=== PATIENT | female | born 2000 | race Caucasian/White ===

== ENCOUNTER 2019-02-11 14:15 | Emergency (ER) | payer MEDICAID ==
[2019-02-11 14:41] VITALS: BP 121/78; PULSE 113
[2019-02-11] MEDS ORDERED: Ketorolac 60 MG/2 ML SDV IM ONE (14:55)
--- NOTE | 2019-02-11 15:03 | EDM.PDOC ---
ED HPI GENERAL MEDICAL PROBLEM - General Chief Complaint: ENT Problem Stated Complaint: POSSIBLE DEHYDRATION, PAIN IN R EAR Time Seen by Provider: 02/11/19 14:40 Source of Information: Reports: Patient, Family History Limitations: Reports: No Limitations - History of Present Illness INITIAL COMMENTS - FREE TEXT/NARRATIVE: 19-year-old female with right-sided ear pain, worsening over the past 3 days. She also has generalized malaise, painful swallowing, decreased appetite and loose stools. No fevers or chills. She was seen at the clinic yesterday, a rapid strep was obtained and was negative. No significant cough or shortness of breath. No rashes. She has taken some Tylenol without any benefit. Onset: Gradual Duration: Day(s): (3 days) Location: Reports: Other (Most of the intense pain is in the right ear and right jaw) Worsens with: Reports: Other (. Painful to open her mouth or move her right ear helix) Associated Symptoms: Reports: Headaches. Denies: Chest Pain, Cough, Fever/ Chills, Shortness of Breath Right Ear Pain Score (Numeric/FACES): 9 - Related Data Allergies Allergy/AdvReac Type Severity Reaction Status Date / Time Latex, Natural Rubber Allergy Burning Verified 02/11/19 14:29 Sulfa (Sulfonamide Allergy Facial Verified 02/11/19 14:29 Antibiotics) Swelling Home Meds: Home Meds Loperamide HCl [Loperamide] 1 tab PO ASDIRECTED 02/11/19 [History] Ondansetron [Ondansetron ODT] 4 mg PO Q6H PRN 02/11/19 [History] Past Medical History HEENT History: Reports: Impaired Vision Cardiovascular History: Reports: Other (See Below) Other Cardiovascular History: needs mitral valve replacement Respiratory History: Reports: Asthma Genitourinary History: Reports: Neurogenic Bladder 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: 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 History: Reports: Fracture Other 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 History: fx elbow nose Neurological History: Reports: Cerebral Palsy, Concussion, Head Trauma Other Neuro History: tbi Psychiatric History: Reports: Anxiety, Autism Other Psychiatric History: global - Past Surgical History HEENT Surgical History: Reports: Tonsillectomy Social & Family History - Tobacco Use Smoking Status *Q: Current Some Day Smoker Years of Tobacco use: 2 Packs/Tins Daily: 0.2 Used Tobacco, but Quit: No Second Hand Smoke Exposure: Yes - Caffeine Use Caffeine Use: Reports: None - Alcohol Use Days Per Week of Alcohol Use: 0 - Recreational Drug Use Recreational Drug Use: No ED ROS ENT - Review of Systems Review Of Systems: See Below Constitutional: Reports: Malaise, Decreased Appetite HEENT: Reports: Ear Pain, Throat Pain Respiratory: Denies: Shortness of Breath, Cough GI/Abdominal: Reports: Nausea. Denies: Abdominal Pain Skin: Reports: No Symptoms Neurological: Reports: Headache ED EXAM, ENT - Physical Exam Exam: See Below Exam Limited By: No Limitations General Appearance: Alert, Mild Distress (Tearful, looks very uncomfortable) Eye Exam: Bilateral Eye: Normal Inspection (Good hydration, crying tears) Ears: Other (Left tympanic membrane is normal, the right has redness, fluid, and slight bulging. There also appears to be some inflammation of the external canal) Mouth/Throat: Normal Inspection (Tonsils are absent) Neck: No: Lymphadenopathy (R), Lymphadenopathy (L) Respiratory/Chest: No Respiratory Distress, Lungs Clear Cardiovascular: Regular Rate, Rhythm Neurological: Alert, Oriented Psychiatric: Tearful Skin: Warm, Dry Course - Vital Signs Last Recorded V/S: Last Vital Signs Temp 98 F 02/11/19 14:39 Pulse 113 H 02/11/19 14:39 Resp 16 02/11/19 14:39 BP 121/78 02/11/19 14:39 Pulse Ox 96 02/11/19 14:39 - Orders/Labs/Meds Meds: Medications Discontinued Medications Generic Name Dose Route Start Last Admin Trade Name Javier PRN Reason Stop Dose Admin Ketorolac Tromethamine 60 mg 02/11/19 14:55 02/11/19 15:02 Toradol IM 02/11/19 14:56 60 mg ONETIME ONE Administration - Re-Assessments/Exams Free Text/Narrative Re-Assessment/Exam: 02/11/19 15:02 Patient will be placed on Augmentin 875 mg twice daily for at least 7 days, she was given 60 mg of IM Toradol and can continue with Toradol every 6 hours for the next 3 days. Recheck in 48-72 hours if not improving despite treatment. Departure - Departure Time of Disposition: 15:17 Disposition: Home, Self-Care 01 Clinical Impression: Otitis media Qualifiers: Otitis media type: serous Chronicity: acute Laterality: right Recurrence: non- recurrent Qualified Code(s): H65.01 - Acute serous otitis media, right ear - Discharge Information Instructions: Otitis Media, Adult, [id number] Referrals: Roxanna Youngblood MD [Primary Care Provider] - Forms: ED Department Discharge Care Plan Goals: Take one dose of antibiotic with food twice daily for at least 7 days if improving, take all 10 days if needed. Use pain medication every 6 hours until gone. You can also add Tylenol as well. Increase activity and diet as tolerated , and consider rechecking in 2-3 days if not improving.
== END 2019-02-11 15:17 | disposition home or self-care (01) ==
LOC: JP.ED 14:15
DX: H65.01 Acute serous otitis media, right ear (principal); F17.210 Nicotine dependence, cigarettes, uncomplicated; Z91.040 Latex allergy status; Z88.2 Allergy status to sulfonamides
CPT/HCPCS: 96372; 99284; J1885

== ENCOUNTER 2020-04-20 20:49 | Emergency (ER) | payer MEDICAID ==
[2020-04-20 21:41] VITALS: BP 145/85; PULSE 93
--- NOTE | 2020-04-20 22:00 | EDM.PDOC ---
ED HPI GENERAL MEDICAL PROBLEM - General Chief Complaint: Lower Extremity Injury/Pain Stated Complaint: L KNEE INJURY Time Seen by Provider: 04/20/20 21:54 Source of Information: Reports: Patient History Limitations: Reports: No Limitations - History of Present Illness INITIAL COMMENTS - FREE TEXT/NARRATIVE: Maggie is a 20-year-old female presenting to the ED for evaluation of left knee pain and swelling. The patient has been experiencing increasing pain in the knee for the last 3 to 4 weeks but had an episode where she fell on the ice landing on her left knee causing a popping sensation and pain. She has significant swelling in the infrapatellar area that is pushing the patella lateral. She has significant tenderness along the medial knee with swelling and bruising. She has been ambulating but with increasing difficulty due to pain. She denies any numbness or tingling distal to the injury. She denies any weakness in the leg. She denies any other injuries related to the fall. left knee Pain Score (Numeric/FACES): 6 - Related Data Allergies Allergy/AdvReac Type Severity Reaction Status Date / Time Influenza Virus Vaccines Allergy Airway Verified 04/20/20 21:45 Tightness Latex, Natural Rubber Allergy Burning Verified 04/20/20 21:36 Sulfa (Sulfonamide Allergy Facial Verified 04/20/20 21:36 Antibiotics) Swelling Home Meds: Home Meds NK [No Known Home Meds] 04/20/20 [History] Past Medical History HEENT History: Reports: Impaired Vision Cardiovascular History: Reports: Other (See Below) Other Cardiovascular History: needs mitral valve replacement Respiratory History: Reports: Asthma Gastrointestinal History: Reports: GERD Genitourinary History: Reports: Neurogenic Bladder, UTI, Recurrent 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: 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 History: Reports: Fracture Other 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 History: fx elbow nose Neurological History: Reports: Cerebral Palsy, Concussion, Head Trauma Other Neuro History: tbi Psychiatric History: Reports: Anxiety, Autism Other Psychiatric History: global - Infectious Disease History Infectious Disease History: Reports: Chicken Pox, Mononucleosis, Novel Coronavirus - Past Surgical History HEENT Surgical History: Reports: Tonsillectomy Other HEENT Surgeries/Procedures: freq strep Neurological Surgical History: Reports: Scoliosis 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 Surgical History: Reports: ORIF Social & Family History - Tobacco Use Tobacco Use Status *Q: Current Every Day Tobacco User Years of Tobacco use: 5 Packs/Tins Daily: 0.2 - Caffeine Use Caffeine Use: Reports: None - Recreational Drug Use Recreational Drug Use: No Review of Systems - Review of Systems Review Of Systems: See Below Constitutional: Reports: No Symptoms Eyes: Reports: No Symptoms Respiratory: Reports: No Symptoms Cardiovascular: Reports: No Symptoms GI/Abdominal: Reports: No Symptoms Genitourinary: Reports: No Symptoms 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: Reports: Joint Pain (Left knee swelling and pain), Joint Swe lling (Left knee) Skin: Reports: No Symptoms Neurological: Reports: No Symptoms Psychiatric: Reports: No Symptoms ED EXAM, GENERAL - Physical Exam Exam: See Below Exam Limited By: No Limitations General Appearance: Alert, WD/WN, No Apparent Distress Cardiovascular: Normal Peripheral Pulses, Regular Rate, Rhythm, No Murmur Peripheral Pulses: 2+: Radial (L), Radial (R), Posterior Tibial (L), Posterior Tibial (R) Extremities: Joint Swelling (Significant infrapatellar effusion. Tenderness with palpation over the patella and medial joint line.), Limited Range of Motion (Flexion to 110 degrees with extension to 170 degrees.), Other (Significant laxity of the left medial collateral ligament with swelling and bruising along the medial joint line.) Neurological: Alert, Oriented, No Motor/Sensory Deficits Course - Vital Signs Last Recorded V/S: Last Vital Signs Temp 36.6 C 04/20/20 21:40 Pulse 93 04/20/20 21:40 Resp 18 04/20/20 21:40 BP 145/85 H 04/20/20 21:40 Pulse Ox 99 04/20/20 21:40 - Orders/Labs/Meds Orders: Active Orders 24 hr Category Date Time Status Knee 3V Lt [CR] Stat Exams 04/20/20 22:00 Taken - Radiology Interpretation Free Text/Narrative:: Left knee x-ray shows moderate effusion with lateral displacement (subluxation) of the patella. There is no evidence for an acute fracture. - Re-Assessments/Exams Free Text/Narrative Re-Assessment/Exam: 04/20/20 23:00 the patient has findings consistent with an acute sprain of the knee and likely has either a partial or complete tear of the medial collateral ligament. She has significant tenderness and swelling of the medial joint line. X-rays were obtained but did not show any evidence for tibial plateau fr acture. Her son arrives he is show a lateral subluxation of the patella with a large effusion displacing it laterally. Given the laxity of the medial ligaments, we will put the patient in a knee immobilizer and on crutches. I will refer her to Dr. Flynn for further evaluation and care. I did instruct the patient to nonweight-bear on the left leg, ice and elevate the knee to reduce swelling, and wear the brace to prevent any further injury. Work note has been provided to the patient with limitations of wearing the brace, no weightbearing on the left leg, and crutch walking until cleared by orthopedics. Indications return to the ED were discussed. Referral to Dr. Flynn was placed. All questions were answered prior to discharge. Departure - Departure Time of Disposition: 23:04 Disposition: Home, Self-Care 01 Condition: Good Clinical Impression: Knee effusion, left, Lateral subluxation of left patella, initial encounter Internal derangement of knee Qualifiers: Laterality: left Qualified Code(s): M23.92 - Unspecified internal derangement of left knee - Discharge Information *PRESCRIPTION DRUG MONITORING PROGRAM REVIEWED*: Not Applicable *COPY OF PRESCRIPTION DRUG MONITORING REPORT IN PATIENT MAGUE: Not Applicable Instructions: Knee Effusion, Patellar Dislocation and Subluxation, How to Use a Knee Immobilizer, [id number], Knee Sprain, Adult, [id number] Referrals: Roxanna Youngblood MD [Primary Care Provider] - Forms: ED Department Discharge Care Plan Goals: May use ibuprofen or naproxen for pain control. I encourage you to elevate the knee to reduce swelling. Use the knee immobilizer when up and ambulating to provide extra stability. You should not apply full weight to the left leg but instead use crutches. We have placed a consult with orthopedic surgeon, Dr. Flynn for follow-up and further evaluation and care. I have included a work note for you with restrictions for requiring the knee brace to be in place and no weightbearing on the left leg with crutch ambulation until otherwise identified by Dr. Flynn. Sepsis Event Note (ED) - Evaluation Sepsis Screening Result: No Definite Risk - Focused Exam Vital Signs: Vital Signs Temp Pulse Resp BP Pulse Ox 04/20/20 21:40 36.6 C 93 18 145/85 H 99 - Problem List & Annotations (1) Internal derangement of knee Status: Acute Priority: High Current Visit: Yes Qualifiers: Laterality: left Qualified Code(s): M23.92 - Unspecified internal derangement of left knee (2) Knee effusion, left SNOMED Code(s): 880453243106546 Code(s): M25.462 - EFFUSION, LEFT KNEE Status: Acute Priority: High Current Visit: Yes (3) Lateral subluxation of left patella, initial encounter SNOMED Code(s): 041129831 Code(s): S83.012A - LATERAL SUBLUXATION OF LEFT PATELLA, INITIAL ENCOUNTER Status: Acute Priority: High Current Visit: Yes - Problem List Review Problem List Initiated/Reviewed/Updated: Yes - My Orders Last 24 Hours: My Active Orders 04/20/20 22:00 Knee 3V Lt [CR] Stat - Assessment/Plan Last 24 Hours: My Active Orders 04/20/20 22:00 Knee 3V Lt [CR] Stat
--- NOTE | 2020-04-23 08:59 | CR ---
Knee 3V Lt CLINICAL HISTORY: Pain, fall FINDINGS: No acute fracture is noted. There are no osseous lesions. The patellar position is somewhat lateral in the femoral patellar joint on the sunrise view. This may represent some laxity. Impression: No fracture Lateral positioning of the patella may represent some ligamentous laxity
== END 2020-04-20 23:21 | disposition home or self-care (01) ==
LOC: JP.ED 20:49
DX: S83.012A Lateral subluxation of left patella, initial encounter (principal); S89.82XA Other specified injuries of left lower leg, initial encounter; M25.462 Effusion, left knee; J45.909 Unspecified asthma, uncomplicated; G80.9 Cerebral palsy, unspecified; Z88.7 Allergy status to serum and vaccine; Z91.040 Latex allergy status; Z88.2 Allergy status to sulfonamides; Z72.0 Tobacco use; W00.0XXA Fall on same level due to ice and snow, initial encounter
CPT/HCPCS: 73562-26-LT; 73562-LT; 99283; 99283-25

== ENCOUNTER 2020-07-25 16:55 | Emergency (ER) | payer MEDICAID ==
[2020-07-25 17:14] VITALS: BP 150/88; PULSE 103
--- NOTE | 2020-07-25 17:34 | EDM.PDOC ---
ED HPI GENERAL MEDICAL PROBLEM - General Chief Complaint: Respiratory Problem Stated Complaint: DIZZY LIGHT HEADED, CHEST PAIN,SHORTNESS OF BREATH Time Seen by Provider: 07/25/20 17:24 Source of Information: Reports: Patient, Family, RN Notes Reviewed History Limitations: Reports: No Limitations - History of Present Illness INITIAL COMMENTS - FREE TEXT/NARRATIVE: 20-year-old female presents emergency department today with a near syncopal event while driving she was able to pull to the side of the road she felt short of breath she felt chest pain felt like she was going to . Those symptoms now have improved. Per report from family as she has had some issues where she would be talking and then started to mumble feel like she was going to pass out but then recover she has not seen anybody for this - Related Data Allergies Allergy/AdvReac Type Severity Reaction Status Date / Time Egg Derived Allergy Other Verified 07/25/20 17:14 garlic Allergy Rash Verified 07/25/20 17:14 ibuprofen Allergy Other Verified 07/25/20 17:14 Influenza Virus Vaccines Allergy Airway Verified 07/25/20 17:14 Tightness Latex, Natural Rubber Allergy Burning Verified 07/25/20 17:14 sertraline [From Zoloft] Allergy Other Verified 07/25/20 17:14 Sulfa (Sulfonamide Allergy Facial Verified 07/25/20 17:14 Antibiotics) Swelling Home Meds: Home Meds Cranberry Fruit Extract [Cranberry] 200 mg PO DAILY 04/26/20 [History] Baclofen 10 mg PO BID PRN 05/09/20 [History] Cider Vinegar [Apple Cider Vinegar] 300 mg PO DAILY 05/09/20 [History] EPINEPHrine [Epinephrine] 0.3 mg IM ASDIRECTED 05/09/20 [History] Fluticasone Propionate [Flonase] 2 spray NASBOTH DAILY 05/09/20 [History] diphenhydrAMINE [Benadryl] 25 mg PO Q4H PRN 05/09/20 [History] busPIRone [Buspar] 5 mg PO BID #30 tablet 07/25/20 [Rx] Past Medical History HEENT History: Reports: Impaired Vision Cardiovascular History: Reports: Other (See Below) Other Cardiovascular History: needs mitral valve replacement Respiratory History: Reports: Asthma Gastrointestinal History: Reports: GERD Genitourinary History: Reports: Neurogenic Bladder, UTI, Recurrent 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 Injured L knee in fall 04/20/20 Neurological History: Reports: Cerebral Palsy, Concussion, Head Trauma Other Neuro History: tbi Psychiatric History: Reports: Anxiety, Autism Other Psychiatric History: global Endocrine/Metabolic History: Reports: Obesity/BMI 30+ Hematologic History: Reports: Iron Deficiency - Infectious Disease History Infectious Disease History: Reports: Chicken Pox, Mononucleosis, Novel Coronavirus - Past Surgical History Head Surgeries/Procedures: Reports: None HEENT Surgical History: Reports: Tonsillectomy Other HEENT Surgeries/Procedures: freq strep Cardiovascular Surgical History: Reports: None Respiratory Surgical History: Reports: None GI Surgical History: Reports: None Endocrine Surgical History: Reports: None Neurological Surgical History: Reports: Scoliosis 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 Surgical History: Reports: ORIF Dermatological Surgical History: Reports: None Social & Family History - Tobacco Use Tobacco Use Status *Q: Current Every Day Tobacco User Years of Tobacco use: 5 Packs/Tins Daily: 0.3 Used Tobacco, but Quit: No Second Hand Smoke Exposure: No - Caffeine Use Caffeine Use: Reports: None - Recreational Drug Use Recreational Drug Use: No ED ROS GENERAL - Review of Systems Review Of Systems: See Below Constitutional: Reports: No Symptoms HEENT: Reports: No Symptoms Respiratory: Reports: Shortness of Breath Cardiovascular: Reports: Chest Pain, Palpitations GI/Abdominal: Reports: No Symptoms Neurological: Reports: No Symptoms ED EXAM, GENERAL - Physical Exam Exam: See Below Exam Limited By: No Limitations General Appearance: Alert, WD/WN, No Apparent Distress Respiratory/Chest: No Respiratory Distress, Lungs Clear, Normal Breath Sounds, No Accessory Muscle Use, Chest Non-Tender Cardiovascular: Regular Rate, Rhythm, No Murmur #1 Interpretation EKG Date: 07/25/20 Rhythm: NSR Emigrant: Normal P-Wave: Present QRS: Normal ST-T: Normal QT: Normal Comparison: NA - No Prior EKG Course - Vital Signs Last Recorded V/S: Last Vital Signs Temp 98.1 F 07/25/20 17:15 Pulse 103 H 07/25/20 17:15 Resp 12 07/25/20 17:15 BP 150/88 H 07/25/20 17:15 Pulse Ox 100 07/25/20 17:15 - Orders/Labs/Meds Orders: Active Orders 24 hr Category Date Time Status Cardiac Monitoring [RC] .As Directed Care 07/25/20 17:27 Active EKG Documentation Completion [RC] ASDIRECTED Care 07/25/20 17:28 Active Chest 2V [CR] Stat Exams 07/25/20 17:28 Taken EKG 12 Lead [EK] Stat Ther 07/25/20 17:28 Ordered Labs: Laboratory Tests 07/25/20 07/25/20 07/25/20 Range/Units 17:27 17:27 17:37 WBC 7.3 (4.5-11.0) K/uL RBC 4.45 (3.30-5.50) M/uL Hgb 13.8 (12.0-15.0) g/dL Hct 41.4 (36.0-48.0) % MCV 93 (80-98) fL MCH 31 (27-31) pg MCHC 33 (32-36) % Plt Count 244 (150-400) K/uL Neut % (Auto) 53 (36-66) % Lymph % (Auto) 38 (24-44) % Ness % (Auto) 8 H (2-6) % Eos % (Auto) 1 L (2-4) % Baso % (Auto) 0 (0-1) % Sodium 143 (140-148) mmol/L Potassium 3.6 (3.6-5.2) mmol/L Chloride 102 (100-108) mmol/L Carbon Dioxide 28 (21-32) mmol/L Anion Gap 12.7 (5.0-14.0) mmol/L BUN 11 (7-18) mg/dL Creatinine 0.7 (0.6-1.0) mg/dL Est Cr Clr Drug Dosing 113.43 mL/min Estimated GFR (MDRD) > 60 (>60) Glucose 116 H (74-106) mg/dL Calcium 10.1 (8.5-10.1) mg/dL Troponin I < 0.017 (0.000-0.056) ng/mL Urine Opiates Screen Negative (NEGATIVE) Ur Oxycodone Screen Negative (NEGATIVE) Urine Methadone Screen Negative (NEGATIVE) Ur Propoxyphene Screen Negative (NEGATIVE) Ur Barbiturates Screen Negative (NEGATIVE) Ur Tricyclics Screen Negative (NEGATIVE) Ur Phencyclidine Scrn Negative (NEGATIVE) Ur Amphetamine Screen Negative (NEGATIVE) U Methamphetamines Scrn Negative (NEGATIVE) Urine MDMA Screen Negative (NEGATIVE) U Benzodiazepines Scrn Negative (NEGATIVE) U Cocaine Metab Screen Negative (NEGATIVE) U Marijuana (THC) Screen Negative (NEGATIVE) Departure - Departure Time of Disposition: 18:30 Disposition: Home, Self-Care 01 Condition: Fair Clinical Impression: Near syncope - Discharge Information Prescriptions: busPIRone [Buspar] 5 mg PO BID #30 tablet Instructions: Near-Syncope, [id number] Referrals: Roxanna Youngblood MD [Primary Care Provider] - Forms: ED Department Discharge, ED Return to Work/School Form Sepsis Event Note (ED) - Evaluation Sepsis Screening Result: No Definite Risk - Focused Exam Vital Signs: Vital Signs Temp Pulse Resp BP Pulse Ox 07/25/20 17:15 98.1 F 103 H 12 150/88 H 100 07/25/20 17:12 98.1 F 103 H 12 150/88 H 100 - My Orders Last 24 Hours: My Active Orders 07/25/20 17:27 Cardiac Monitoring [RC] .As Directed 07/25/20 17:28 EKG Documentation Completion [RC] ASDIRECTED Chest 2V [CR] Stat EKG 12 Lead [EK] Stat - Assessment/Plan Last 24 Hours: My Active Orders 07/25/20 17:27 Cardiac Monitoring [RC] .As Directed 07/25/20 17:28 EKG Documentation Completion [RC] ASDIRECTED Chest 2V [CR] Stat EKG 12 Lead [EK] Stat Plan: Assessment Acuity = acute Site and laterality = near syncope Etiology = unknown Manifestations = none Location of injury = Home Lab values = CBC BMP troponin all within normal limits EKG demonstrates normal sinus rhythm chest x-ray I did review films myself I cannot appreciate any acute process, the official read from radiology is pending Plan I did discuss with her the possibility of anxiety versus some unknown arrhythmia she would like to try anxiety medications therefore prescription for buspirone 5 mg p.o. twice daily faxed to [facility] she is going to follow-up with her primary care in the next 5 to 7 days for reevaluation and discuss the possibility of a Holter monitor as well This note was dictated using [employer] voice recognition software please call with any questions on syntax or grammar.
--- NOTE | 2020-07-26 08:55 | CR ---
CHEST: 2 view CLINICAL HISTORY:Syncope COMPARISON:None FINDINGS: The heart size, pulmonary vascularity and hilar structures are normal. No infiltrate effusion or pneumothorax is seen. IMPRESSION: No acute cardiopulmonary process.
== END 2020-07-25 18:54 | disposition home or self-care (01) ==
LOC: JP.ED 16:55
DX: R55 Syncope and collapse (principal); E66.9 Obesity, unspecified; Z91.012 Allergy to eggs; Z91.018 Allergy to other foods; Z68.31 Body mass index [BMI] 31.0-31.9, adult; Z88.7 Allergy status to serum and vaccine; Z91.040 Latex allergy status; Z88.2 Allergy status to sulfonamides; Z88.8 Allergy status to other drugs, medicaments and biological substances; Z86.16 Personal history of COVID-19; Z72.0 Tobacco use
CPT/HCPCS: 36415; 71046; 71046-26; 80048; 80305-QW; 84484; 85025; 93005; 99284-25

== ENCOUNTER 2020-09-10 03:27 | Emergency (ER) | payer MEDICAID ==
[2020-09-10 03:42] VITALS: BP 148/97; PULSE 100
[2020-09-10] MEDS ORDERED: Ketorolac 30 MG/ML SDV IVPUSH ONE (04:16)
--- NOTE | 2020-09-10 04:20 | EDM.PDOC ---
ED HPI GENERAL MEDICAL PROBLEM - General Chief Complaint: Abdominal Pain Stated Complaint: ABD PAIN Time Seen by Provider: 09/10/20 04:05 Source of Information: Reports: Patient History Limitations: Reports: No Limitations - History of Present Illness INITIAL COMMENTS - FREE TEXT/NARRATIVE: 20-year-old female with a known left ovarian cyst developed sudden intense left lower abdominal and pelvic pain after intercourse, she felt a "pop" and then developed pain. She is physically stable but is very uncomfortable. She took one of her pain medications before coming in and feels a little bit better. Onset: Sudden Duration: Hour(s): (3 hours ago) Location: Reports: Abdomen (Left lower abdomen) Improves with: Reports: Medication (Pain medication has helped a little bit) Worsens with: Reports: Other (Walking is very painful), Movement Associated Symptoms: Reports: No Other Symptoms Left Lower Abdomen Pain Score (Numeric/FACES): 10 - Related Data Allergies Allergy/AdvReac Type Severity Reaction Status Date / Time Egg Derived Allergy Other Verified 09/10/20 03:44 garlic Allergy Rash Verified 09/10/20 03:44 ibuprofen Allergy Other Verified 09/10/20 03:44 Influenza Virus Vaccines Allergy Airway Verified 09/10/20 03:44 Tightness Latex, Natural Rubber Allergy Burning Verified 09/10/20 03:44 sertraline [From Zoloft] Allergy Other Verified 09/10/20 03:44 Sulfa (Sulfonamide Allergy Facial Verified 09/10/20 03:44 Antibiotics) Swelling Home Meds: Home Meds Baclofen 10 mg PO BID PRN 05/09/20 [History] EPINEPHrine [Epinephrine] 0.3 mg IM ASDIRECTED 05/09/20 [History] diphenhydrAMINE [Benadryl] 25 mg PO Q4H PRN 05/09/20 [History] Acetaminophen/Codeine [Tylenol with Codeine No.3 300MG/30MG] 1 tab PO Q6H PRN 09/10/20 [History] Escitalopram [Lexapro] 10 mg PO BID 09/10/20 [History] Famotidine 20 mg PO BID 09/10/20 [History] Ondansetron [Zofran ODT] 4 mg PO Q6H PRN 09/10/20 [History] Triamcinolone Acetonide [Triamcinolone Acetonide 0.1% Crm] 1 dose TOP TID 09/10/20 [History] hydrOXYzine HCL [Atarax] 1 - 3 tab PO Q6H 09/10/20 [History] Past Medical History HEENT History: Reports: Impaired Vision Cardiovascular History: Reports: Other (See Below) Other Cardiovascular History: needs mitral valve replacement Respiratory History: Reports: Asthma Gastrointestinal History: Reports: GERD Genitourinary History: Reports: Neurogenic Bladder, UTI, Recurrent WRAPPER OPERATOR History: Reports: , Other (See Below) Other WRAPPER OPERATOR History: 5cm l ovarian cyst. 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 Injured L knee in fall 04/20/20 Neurological History: Reports: Cerebral Palsy, Concussion, Head Trauma Other Neuro History: tbi Psychiatric History: Reports: Anxiety, Autism Other Psychiatric History: global Endocrine/Metabolic History: Reports: Obesity/BMI 30+ Hematologic History: Reports: Iron Deficiency - Infectious Disease History Infectious Disease History: Reports: Chicken Pox, Mononucleosis, Novel Coronavirus - Past Surgical History Head Surgeries/Procedures: Reports: None HEENT Surgical History: Reports: Tonsillectomy Other HEENT Surgeries/Procedures: freq strep Cardiovascular Surgical History: Reports: None Respiratory Surgical History: Reports: None GI Surgical History: Reports: None Endocrine Surgical History: Reports: None Neurological Surgical History: Reports: Scoliosis 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 Surgical History: Reports: ORIF, Other (See Below) Other 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 Surgeries/Procedures:: EDS CP Dermatological Surgical History: Reports: None Social & Family History - Tobacco Use Tobacco Use Status *Q: Current Every Day Tobacco User Years of Tobacco use: 10 Packs/Tins Daily: 0.2 Used Tobacco, but Quit: No Second Hand Smoke Exposure: Yes - Caffeine Use Caffeine Use: Reports: Soda - Alcohol Use Days Per Week of Alcohol Use: 0 - Recreational Drug Use Recreational Drug Use: No ED ROS GENERAL - Review of Systems Review Of Systems: See Below Constitutional: Denies: Fever, Chills HEENT: Reports: No Symptoms Respiratory: Denies: Shortness of Breath Cardiovascular: Denies: Chest Pain GI/Abdominal: Reports: Abdominal Pain, Other (Chronic irritable bowel syndrome) Skin: Reports: No Symptoms Neurological: Reports: No Symptoms ED EXAM, GI/ABD - Physical Exam Exam: See Below Exam Limited By: No Limitations General Appearance: Alert, Mild Distress Eyes: Bilateral: Normal Appearance Head: Atraumatic Respiratory/Chest: No Respiratory Distress, Lungs Clear Cardiovascular: Regular Rate, Rhythm GI/Abdominal Exam: Soft, Tender (Tender with some guarding across the lower abdomen, especially on the left side) Extremities: No Pedal Edema Neurological: Alert, Oriented Psychiatric: Anxious Skin Exam: Warm, Dry Course - Vital Signs Last Recorded V/S: Last Vital Signs Temp 96 F L 09/10/20 03:40 Pulse 100 09/10/20 03:40 Resp 20 09/10/20 03:40 BP 148/97 H 09/10/20 03:40 Pulse Ox 98 09/10/20 03:40 - Orders/Labs/Meds Labs: Laboratory Tests 09/10/20 09/10/20 09/10/20 Range/Units 03:35 03:35 04:15 WBC 9.8 (4.5-11.0) K/uL RBC 4.64 (3.30-5.50) M/uL Hgb 14.3 (12.0-15.0) g/dL Hct 43.2 (36.0-48.0) % MCV 93 (80-98) fL MCH 31 (27-31) pg MCHC 33 (32-36) % Plt Count 252 (150-400) K/uL Neut % (Auto) 46.2 (36-66) % Lymph % (Auto) 45.3 H (24-44) % [place] % (Auto) 7.4 H (2-6) % Eos % (Auto) 0.9 L (2-4) % Baso % (Auto) 0.2 (0-1) % Sodium 140 (140-148) mmol/L Potassium 3.7 (3.6-5.2) mmol/L Chloride 101 (100-108) mmol/L Carbon Dioxide 25 (21-32) mmol/L Anion Gap 14.3 H (5.0-14.0) mmol/L BUN 11 (7-18) mg/dL Creatinine 0.8 (0.6-1.0) mg/dL Est Cr Clr Drug Dosing 99.25 mL/min Estimated GFR (MDRD) > 60 (>60) Glucose 111 H (74-106) mg/dL Calcium 9.5 (8.5-10.1) mg/dL Urine Color Yellow (YELLOW) Urine Appearance Clear (CLEAR) Urine pH 6.5 (5.0-8.0) Ur Specific [place] 1.015 (1.008-1.030) Urine Protein Negative (NEGATIVE) mg/dL Urine Glucose (UA) Negative (NEGATIVE) mg/dL Urine Ketones Negative (NEGATIVE) mg/dL Urine Occult Blood Negative (NEGATIVE) Urine Nitrite Negative (NEGATIVE) Urine Bilirubin Negative (NEGATIVE) Urine Urobilinogen 0.2 (0.2-1.0) EU/dL Ur Leukocyte Esterase Negative (NEGATIVE) Urine RBC 0-5 (0-5) Urine WBC 0-5 (0-5) Ur Epithelial Cells Few Amorphous Sediment Not seen Urine Bacteria Rare Urine Mucus Not seen Urine HCG, Qual Urine Opiates Screen (NEGATIVE) Ur Oxycodone Screen (NEGATIVE) Urine Methadone Screen (NEGATIVE) Ur Propoxyphene Screen (NEGATIVE) Ur Barbiturates Screen (NEGATIVE) Ur Tricyclics Screen (NEGATIVE) Ur Phencyclidine Scrn (NEGATIVE) Ur Amphetamine Screen (NEGATIVE) U Methamphetamines Scrn (NEGATIVE) Urine MDMA Screen (NEGATIVE) U Benzodiazepines Scrn (NEGATIVE) U Cocaine Metab Screen (NEGATIVE) U Marijuana (THC) Screen (NEGATIVE) 09/10/20 09/10/20 Range/Units 04:25 04:25 WBC (4.5-11.0) K/uL RBC (3.30-5.50) M/uL Hgb (12.0-15.0) g/dL Hct (36.0-48.0) % MCV (80-98) fL MCH (27-31) pg MCHC (32-36) % Plt Count (150-400) K/uL Neut % (Auto) (36-66) % Lymph % (Auto) (24-44) % [place] % (Auto) (2-6) % Eos % (Auto) (2-4) % Baso % (Auto) (0-1) % Sodium (140-148) mmol/L Potassium (3.6-5.2) mmol/L Chloride (100-108) mmol/L Carbon Dioxide (21-32) mmol/L Anion Gap (5.0-14.0) mmol/L BUN (7-18) mg/dL Creatinine (0.6-1.0) mg/dL Est Cr Clr Drug Dosing mL/min Estimated GFR (MDRD) (>60) Glucose (74-106) mg/dL Calcium (8.5-10.1) mg/dL Urine Color (YELLOW) Urine Appearance (CLEAR) Urine pH (5.0-8.0) Ur Specific [place] (1.008-1.030) Urine Protein (NEGATIVE) mg/dL Urine Glucose (UA) (NEGATIVE) mg/dL Urine Ketones (NEGATIVE) mg/dL Urine Occult Blood (NEGATIVE) Urine Nitrite (NEGATIVE) Urine Bilirubin (NEGATIVE) Urine Urobilinogen (0.2-1.0) EU/dL Ur Leukocyte Esterase (NEGATIVE) Urine RBC (0-5) Urine WBC (0-5) Ur Epithelial Cells Amorphous Sediment Urine Bacteria Urine Mucus Urine HCG, Qual Negative Urine Opiates Screen Presumptive positive H (NEGATIVE) Ur Oxycodone Screen Negative (NEGATIVE) Urine Methadone Screen Negative (NEGATIVE) Ur Propoxyphene Screen Negative (NEGATIVE) Ur Barbiturates Screen Negative (NEGATIVE) Ur Tricyclics Screen Negative (NEGATIVE) Ur Phencyclidine Scrn Negative (NEGATIVE) Ur Amphetamine Screen Negative (NEGATIVE) U Methamphetamines Scrn Negative (NEGATIVE) Urine MDMA Screen Negative (NEGATIVE) U Benzodiazepines Scrn Negative (NEGATIVE) U Cocaine Metab Screen Negative (NEGATIVE) U Marijuana (THC) Screen Negative (NEGATIVE) Meds: Medications Discontinued Medications Generic Name Dose Route Start Last Admin Trade Name Gilq PRN Reason Stop Dose Admin Ketorolac Tromethamine 15 mg 09/10/20 04:16 09/10/20 04:24 Ketorolac 30 Mg/Ml Sdv IVPUSH 09/10/20 04:17 15 mg ONETIME ONE Administration - Re-Assessments/Exams Free Text/Narrative Re-Assessment/Exam: 09/10/20 04:19 IV was started, patient was given 15 mg of IV Toradol. CBC, BMP, UA, urine and urine drug screen were obtained. 09/10/20 06:29 Labs are normal, UA is negative and urine is negative. Patient was still having some discomfort but felt much better, remained hemodynamically stable. Hemoglobin was normal. Discussed an ultrasound of the pelvis, however she is heading north to [place] later this morning where her regular care has be en given and where they did a recent ultrasound 1 month ago. I read the report and there was a 5 cm hemorrhagic cyst on the left side, I recommended rechecking with her WRAPPER OPERATOR this morning and getting another ultrasound so they can compare. Departure - Departure Time of Disposition: 05:06 Disposition: Home, Self-Care 01 Clinical Impression: Left ovarian cyst Abdominal pain Qualifiers: Abdominal location: lower abdomen, unspecified Qualified Code(s): R10.30 - Lower abdominal pain, unspecified - Discharge Information Instructions: Ovarian Cyst, [id number] Referrals: PCP,None [Primary Care Provider] - Forms: ED Department Discharge Care Plan Goals: Rest for the next few hours, consider taking another hydrocodone pain medication. Take your labs with you up to [place] this morning and call your WRAPPER OPERATOR to consider a recheck in a comparison ultrasound this morning. Sepsis Event Note (ED) - Evaluation Sepsis Screening Result: No Definite Risk - Focused Exam Vital Signs: Vital Signs Temp Pulse Resp BP Pulse Ox 09/10/20 03:40 96 F L 100 20 148/97 H 98
== END 2020-09-10 05:06 | disposition home or self-care (01) ==
LOC: JP.ED 03:27
DX: N83.202 Unspecified ovarian cyst, left side (principal); E66.9 Obesity, unspecified; Z91.040 Latex allergy status; Z88.2 Allergy status to sulfonamides; Z88.7 Allergy status to serum and vaccine; Z91.018 Allergy to other foods; Z91.012 Allergy to eggs; Z72.0 Tobacco use; Z68.31 Body mass index [BMI] 31.0-31.9, adult
CPT/HCPCS: 36415; 80048; 80305; 81001; 81025; 85025; 96374; 99284; J1885

== ENCOUNTER 2021-04-13 19:45 | Emergency (ER) | payer MEDICAID ==
[2021-04-13 20:38] VITALS: BP 144/99; PULSE 83
== END 2021-04-13 21:43 | disposition home or self-care (01) ==
LOC: JP.ED 19:45
DX: F41.9 Anxiety disorder, unspecified (principal); N30.01 Acute cystitis with hematuria; H90.11 Conductive hearing loss, unilateral, right ear, with unrestricted hearing on the contralateral side; H74.91 Unspecified disorder of right middle ear and mastoid; H69.81 Other specified disorders of Eustachian tube, right ear; J45.909 Unspecified asthma, uncomplicated; E66.9 Obesity, unspecified; Z68.29 Body mass index [BMI] 29.0-29.9, adult; Z88.8 Allergy status to other drugs, medicaments and biological substances; Z88.2 Allergy status to sulfonamides; Z91.012 Allergy to eggs; Z91.018 Allergy to other foods; Z88.6 Allergy status to analgesic agent; Z88.7 Allergy status to serum and vaccine; Z91.040 Latex allergy status; Z79.899 Other long term (current) drug therapy
CPT/HCPCS: 36415; 80048; 81001; 81025; 85025; 86140; 87086; 99283

== ENCOUNTER 2021-09-21 12:32 | Emergency (ER) | payer MEDICAID ==
[2021-09-21 12:44] VITALS: BP 146/94; PULSE 79
== END 2021-09-21 13:57 | disposition home or self-care (01) ==
LOC: JP.ED 12:32
DX: S63.501A Unspecified sprain of right wrist, initial encounter (principal); S60.031A Contusion of right middle finger without damage to nail, initial encounter; S60.041A Contusion of right ring finger without damage to nail, initial encounter; S60.051A Contusion of right little finger without damage to nail, initial encounter; F41.9 Anxiety disorder, unspecified; F84.0 Autistic disorder; E66.9 Obesity, unspecified; Z88.2 Allergy status to sulfonamides; Z88.7 Allergy status to serum and vaccine; Z91.012 Allergy to eggs; Z91.018 Allergy to other foods; Z88.6 Allergy status to analgesic agent; Z88.8 Allergy status to other drugs, medicaments and biological substances; Z91.040 Latex allergy status; W22.8XXA Striking against or struck by other objects, initial encounter
CPT/HCPCS: 73110-RT; 73130-RT; 99283

== ENCOUNTER 2023-07-02 21:48 | Emergency (ER) | payer MEDICAID ==
[2023-07-02 23:48] LABS: BASOPHILS ABSOLUTE AUTO 0.04 K/uL (0.00-0.10); BASOPHILS PERCENT AUTO 0.3 % (0.1-1.3); EOSINOPHILS ABSOLUTE AUTO 0.04 K/uL (0.00-0.40); EOSINOPHILS PERCENT AUTO 0.3 % (0.0-5.4); HEMATOCRIT 41.8 % (34.3-46.0); HEMOGLOBIN 14.7 g/dL (11.2-15.5); IMMATURE GRAN ABSOLUTE AUTO 0.04 K/uL (0.00-0.23); IMMATURE GRAN PERCENT AUTO 0.3 % (0.0-0.7); LYMPHOCYTES ABSOLUTE AUTO 1.18 K/uL (0.8-3.3); LYMPHOCYTES PERCENT AUTO 10.1 % (11.4-47.7); MEAN CORPUSCULAR HEMOGLOBIN 31.5 pg (31.6-35.5); MEAN CORPUSCULAR HGB CONC 35.2 g/dL (31.6-35.5); MEAN CORPUSCULAR VOLUME 89.7 fL (81.4-99.0); MONOCYTES PERCENT AUTO 4.3 % (3.3-12.6); NEUTROPHILS ABSOLUTE AUTO 9.94 K/uL (1.0-7.6); NEUTROPHILS PERCENT AUTO 84.7 % (40.0-78.1); PLATELET COUNT,PLT 228 K/uL (130-375); RED BLOOD CELL COUNT 4.66 M/uL (3.77-5.24); WHITE BLOOD CELL COUNT,WBC 11.7 K/uL (3.2-11.0)
[2023-07-02] MEDS: Ketorolac 15 MG/ML SDV IVPUSH ONE (23:49)
[2023-07-02] MEDS: Sodium Chloride 0.9% 1,000 ML IV ONE (23:49)
[2023-07-02 23:57] LABS: APPEARANCE,URINE SLIGHTLY CLOUDY (CLEAR); BILIRUBIN,URINE NEGATIVE (NEGATIVE); COLOR,URINE YELLOW (YELLOW); GLUCOSE,URINE NEGATIVE (NEGATIVE); KETONES,URINE NEGATIVE (NEGATIVE); LEUKOCYTE ESTERASE,URINE TRACE (NEGATIVE); NITRITE,URINE NEGATIVE (NEGATIVE); OCCULT BLOOD,URINE TRACE-LYSED (NEGATIVE); PROTEIN,URINE TRACE mg/dL (NEGATIVE); UROBILINOGEN,URINE 0.2 EU/dL (0.2-1.0)
[2023-07-03 00:10] LABS: AMORPHOUS SEDIMENT,URINE NOT SEEN; BACTERIA,URINE MODERATE; EPITHELIAL CELLS,URINE MODERATE; MUCUS,URINE MODERATE; RBC,URINE 0-5 (0-5)
[2023-07-03] MEDS: cefTRIAXone 1 GM in Sodium Chloride 0.9% 50 ML IV ONE (00:29)
[2023-07-03 00:30] LABS: CORONAVIRUS COVID-19 NAA NEGATIVE (NEGATIVE); INFLUENZA A NAA NEGATIVE (NEGATIVE); INFLUENZA B NAA NEGATIVE (NEGATIVE); RESPIRATORY SYNCYTIAL VIR NAA NEGATIVE (NEGATIVE)
[2023-07-03 00:32] LABS: ALANINE AMINOTRANSFERASE,ALT 42 U/L (12-78); ALBUMIN 3.8 g/dL (3.4-5.0); ALKALINE PHOSPHATASE 88 U/L (46-116); AMYLASE 26 U/L (25-115); ASPARTATE AMNIOTRANSFERASE,AST 21 U/L (15-37); BILIRUBIN TOTAL 0.4 mg/dL (0.2-1.0); BLOOD UREA NITROGEN,BUN 15 mg/dL (7-18); CALCIUM 8.7 mg/dL (8.5-10.1); CARBON DIOXIDE,CO2 28 mmol/L (21-32); CHLORIDE,CL 98 mmol/L (100-108); CREATININE 0.9 mg/dL (0.6-1.0); EST CRCL DRUG DOSING (CG) 89.45 mL/min; ESTIMATED GFR 91 mL/min (>60); GLUCOSE RANDOM 109 mg/dL (74-106); POTASSIUM,K 3.8 mmol/L (3.6-5.2); PROTEIN TOTAL,TP 7.7 g/dL (6.4-8.2); SODIUM,NA 137 mmol/L (140-148)
[2023-07-03 00:33] LABS: ANION GAP 14.8 mmol/L (5.0-14.0)
[2023-07-03 01:08] VITALS: BP 120/69; PULSE 111
== END 2023-07-03 01:17 | disposition home or self-care (01) ==
LOC: JP.ED 21:48
DX: N30.01 Acute cystitis with hematuria (principal); K21.9 Gastro-esophageal reflux disease without esophagitis; E66.9 Obesity, unspecified; Z91.018 Allergy to other foods; Z91.012 Allergy to eggs; Z91.040 Latex allergy status; Z88.2 Allergy status to sulfonamides; Z88.8 Allergy status to other drugs, medicaments and biological substances; Z88.6 Allergy status to analgesic agent; Z88.7 Allergy status to serum and vaccine; Z79.899 Other long term (current) drug therapy; Z86.19 Personal history of other infectious and parasitic diseases; Z86.16 Personal history of COVID-19; Z68.33 Body mass index [BMI] 33.0-33.9, adult
CPT/HCPCS: 0241U; 36415; 80053; 81001; 82150; 85025; 87651; 96361; 96365; 96375; 99284; J0696; J1885; J3490; J7030; 99283

== ENCOUNTER 2023-09-29 15:20 | Emergency (ER) | payer MEDICAID ==
[2023-09-29 15:45] VITALS: BP 144/76; PULSE 97
[2023-09-29 16:20] LABS: BASOPHILS ABSOLUTE AUTO 0.05 K/uL (0.00-0.10); BASOPHILS PERCENT AUTO 0.5 % (0.1-1.3); EOSINOPHILS ABSOLUTE AUTO 0.07 K/uL (0.00-0.40); EOSINOPHILS PERCENT AUTO 0.7 % (0.0-5.4); HEMOGLOBIN 13.7 g/dL (11.2-15.5); IMMATURE GRAN ABSOLUTE AUTO 0.04 K/uL (0.00-0.23); IMMATURE GRAN PERCENT AUTO 0.4 % (0.0-0.7); LYMPHOCYTES ABSOLUTE AUTO 2.56 K/uL (0.8-3.3); LYMPHOCYTES PERCENT AUTO 27.1 % (11.4-47.7); MEAN CORPUSCULAR HEMOGLOBIN 31.3 pg (31.6-35.5); MEAN CORPUSCULAR HGB CONC 35.1 g/dL (31.6-35.5); MONOCYTES ABSOLUTE AUTO 0.53 K/uL (0.20-0.90); MONOCYTES PERCENT AUTO 5.6 % (3.3-12.6); NEUTROPHILS ABSOLUTE AUTO 6.19 K/uL (1.0-7.6); NEUTROPHILS PERCENT AUTO 65.7 % (40.0-78.1); PLATELET COUNT,PLT 230 K/uL (130-375); RED BLOOD CELL COUNT 4.38 M/uL (3.77-5.24); WHITE BLOOD CELL COUNT,WBC 9.4 K/uL (3.2-11.0)
[2023-09-29 17:15] LABS: CALCIUM 9.1 mg/dL (8.5-10.1); CREATININE 0.7 mg/dL (0.6-1.0); EST CRCL DRUG DOSING (CG) 115.01 mL/min; POTASSIUM,K 3.7 mmol/L (3.6-5.2)
[2023-09-29 17:20] LABS: ANION GAP 13.7 mmol/L (5.0-14.0)
== END 2023-09-29 18:24 | disposition home or self-care (01) ==
LOC: JP.ED 15:20
DX: O20.9 Hemorrhage in early pregnancy, unspecified (principal); Z91.012 Allergy to eggs; Z91.018 Allergy to other foods; Z88.7 Allergy status to serum and vaccine; Z91.040 Latex allergy status; Z88.2 Allergy status to sulfonamides; Z88.8 Allergy status to other drugs, medicaments and biological substances; Z86.16 Personal history of COVID-19; Z3A.01 Less than 8 weeks gestation of pregnancy
CPT/HCPCS: 36415; 80048; 84702; 85025; 86900; 86901; 99284

== ENCOUNTER 2024-02-08 18:29 | Emergency (ER) | payer MEDICAID ==
[2024-02-08 18:46] VITALS: BP 144/75; PULSE 108
[2024-02-08 19:48] LABS: BASOPHILS ABSOLUTE AUTO 0.03 K/uL (0.00-0.10); BASOPHILS PERCENT AUTO 0.3 % (0.1-1.3); EOSINOPHILS ABSOLUTE AUTO 0.04 K/uL (0.00-0.40); EOSINOPHILS PERCENT AUTO 0.4 % (0.0-5.4); HEMATOCRIT 35.9 % (34.3-46.0); HEMOGLOBIN 12.2 g/dL (11.2-15.5); IMMATURE GRAN ABSOLUTE AUTO 0.06 K/uL (0.00-0.23); IMMATURE GRAN PERCENT AUTO 0.6 % (0.0-0.7); LYMPHOCYTES ABSOLUTE AUTO 2.32 K/uL (0.8-3.3); LYMPHOCYTES PERCENT AUTO 22.7 % (11.4-47.7); MEAN CORPUSCULAR HEMOGLOBIN 32.2 pg (31.6-35.5); MEAN CORPUSCULAR VOLUME 94.7 fL (81.4-99.0); MONOCYTES PERCENT AUTO 7.8 % (3.3-12.6); NEUTROPHILS ABSOLUTE AUTO 6.97 K/uL (1.0-7.6); NEUTROPHILS PERCENT AUTO 68.2 % (40.0-78.1); PLATELET COUNT,PLT 215 K/uL (130-375); RED BLOOD CELL COUNT 3.79 M/uL (3.77-5.24); WHITE BLOOD CELL COUNT,WBC 10.2 K/uL (3.2-11.0)
[2024-02-08 20:04] LABS: CALCIUM 9.4 mg/dL (8.5-10.1); CREATININE 0.8 mg/dL (0.6-1.0); EST CRCL DRUG DOSING (CG) 99.76 mL/min; POTASSIUM,K 4.2 mmol/L (3.6-5.2)
[2024-02-08 20:05] LABS: ANION GAP 15.2 mmol/L (5.0-14.0)
[2024-02-08 20:27] LABS: APPEARANCE,URINE SLIGHTLY CLOUDY (CLEAR); BILIRUBIN,URINE NEGATIVE (NEGATIVE); COLOR,URINE YELLOW (YELLOW); GLUCOSE,URINE NEGATIVE (NEGATIVE); KETONES,URINE NEGATIVE (NEGATIVE); LEUKOCYTE ESTERASE,URINE SMALL (NEGATIVE); NITRITE,URINE NEGATIVE (NEGATIVE); OCCULT BLOOD,URINE NEGATIVE (NEGATIVE); PROTEIN,URINE NEGATIVE (NEGATIVE); UROBILINOGEN,URINE 0.2 EU/dL (0.2-1.0)
[2024-02-08 20:30] LABS: AMORPHOUS SEDIMENT,URINE NOT SEEN; BACTERIA,URINE MODERATE; EPITHELIAL CELLS,URINE MODERATE; MUCUS,URINE FEW; RBC,URINE 0-5 (0-5)
== END 2024-02-08 22:02 | disposition home or self-care (01) ==
LOC: JP.ED 18:29
DX: O99.891 Other specified diseases and conditions complicating pregnancy (principal); R10.30 Lower abdominal pain, unspecified; E66.9 Obesity, unspecified; Z86.16 Personal history of COVID-19; Z88.2 Allergy status to sulfonamides; Z91.040 Latex allergy status; Z91.018 Allergy to other foods; Z91.012 Allergy to eggs; Z88.7 Allergy status to serum and vaccine; Z3A.24 24 weeks gestation of pregnancy
CPT/HCPCS: 36415; 76819; 80048; 81001; 85025; 85460; 86850; 86900; 86901; 99284

== ENCOUNTER 2024-12-24 15:58 | Emergency (ER) | payer MEDICAID ==
[2024-12-24 17:32] VITALS: BP 120/73; PULSE 83
== END 2024-12-24 18:41 | disposition home or self-care (01) ==
LOC: JP.ED 15:58
DX: S83.004A Unspecified dislocation of right patella, initial encounter (principal); F17.200 Nicotine dependence, unspecified, uncomplicated; Z79.899 Other long term (current) drug therapy; Z88.8 Allergy status to other drugs, medicaments and biological substances; Z91.040 Latex allergy status; Z88.6 Allergy status to analgesic agent; Z88.2 Allergy status to sulfonamides; Z88.7 Allergy status to serum and vaccine; Z86.16 Personal history of COVID-19; X58.XXXA Exposure to other specified factors, initial encounter
CPT/HCPCS: 73562-26-RT; 73562-RT; 99283